=== PATIENT | female | born 1950 | race Caucasian/White ===

== ENCOUNTER 2019-10-16 10:28 | Outpatient (CLI) | payer MEDICARE ==
--- NOTE | 2019-10-16 11:30 | RAD ---
RIGHT KNEE 4 VIEWS: Date: 10/16/2019 PROVIDED CLINICAL HISTORY: Arthralgia. FINDINGS: Tricompartmental osteophyte formation is seen. There is no evidence for fracture or other acute osseo us abnormality. Alignment appears anatomic. Joint spaces appear preserved. IMPRESSION: Degenerative arthrosis of the right knee. POS: OFF
== END 2019-10-16 10:29 | disposition home or self-care (01) ==
LOC: RAD 10:28
PROVIDERS: ATTEND Family Medicine
DX: M25.561 Pain in right knee (principal); M17.11 Unilateral primary osteoarthritis, right knee

== ENCOUNTER 2019-11-21 08:01 | Day surgery (SDC) | payer MEDICARE ==
[2019-11-20 13:40] VITALS: BMI 25.2
[2019-11-21 09:10] LABS: #Basophils 0.1 thou/uL (0.0-0.2); #Eosinphils 0.1 thou/uL (0.0-0.7); #Lymphocytes 2.3 thou/uL (1.20-3.40); #Monocytes 0.7 thou/uL (0.11-0.59); #Neutrophils 7.6 thou/uL (1.40-6.50); %Basophils 0.6 % (0.0-1.0); %Eosinophils 0.9 % (0.0-10.0); %Monocytes 6.7 % (0.0-10.0); %Neutrophils 70.8 % (42.0-75.0); Mean Corpuscular HGB CONC 34.2 g/dL (32.0-36.0); Mean Corpuscular Hemoglobin 31.3 pg (27.0-31.0); Mean Corpuscular Volume 91.5 fL (78.0-98.0); Mean Platelet Volume 8.9 fL (7.4-10.4); Platelet Count 244 thou/uL (130-400); RBC Distribution Width 12.8 % (11.5-14.5); Red Blood Cell (RBC) Count 4.16 mill/uL (4.20-5.40); White Blood Cell (WBC) Count 10.8 thou/uL (4.8-10.8)
[2019-11-21 09:18] LABS: Prothrombin Time 12.7 SEC (12.0-14.7)
[2019-11-21 09:19] LABS: PTT 30.2 SEC (22.9-36.1)
[2019-11-21 09:34] LABS: Anion Gap 12 mmol/L (10-20); BUN (Urea Nitrogen) 24 mg/dL (9.8-20.1); Calc. Creatinine Clearance 65 mL/min (70-130); Calcium 9.6 mg/dL (7.8-10.44); Carbon Dioxide 34 mmol/L (23-31); Chloride 94 mmol/L (98-107); Estimated GFR-MDRD 64; Glucose 126 mg/dL (80-115); Potassium 3.1 mmol/L (3.5-5.1); Sodium 137 mmol/L (136-145)
[2019-11-21] MEDS ORDERED: Fentanyl 100 MCG/2 ML VIAL ONE ×5 (09:47→15:24)
[2019-11-21] MEDS ORDERED: Lidocaine 1% PF 5 ML VIAL ONE (09:52)
[2019-11-21] MEDS ORDERED: Dexamethasone 20 MG/5 ML VIAL ONE (09:52)
[2019-11-21] MEDS ORDERED: Glycopyrrolate 0.2 MG/ML 5 ML SYRINGE ONE (09:52)
[2019-11-21] MEDS ORDERED: PROPOFOL 200 MG/20 ML VIAL ONE (09:52)
[2019-11-21] MEDS ORDERED: PHENYLEPHRINE-NS 100 MCG/ML 10 ML SYRINGE ONE (09:52)
[2019-11-21] MEDS ORDERED: Rocuronium Bromide 10 MG/ML (10ML VIAL) ONE (09:52)
[2019-11-21] MEDS ORDERED: EPHEDRINE 25 MG/5 ML SYRINGE ONE (09:52)
[2019-11-21] MEDS ORDERED: Ondansetron PF 4 MG/2 ML Vial ONE (09:52)
[2019-11-21] MEDS ORDERED: Thrombin 5000 UNITS/5 ML VIAL ONE (10:01)
[2019-11-21] MEDS ORDERED: Levofloxacin 500 mg/D5W 100 ml Premix Bag ONE (10:09)
[2019-11-21] MEDS ORDERED: Clindamycin/D5W 900 mg/50 ml Premix Bag ONE (10:09)
[2019-11-21] MEDS ORDERED: HYDROmorphone 0.5 MG/0.5 ML SYRINGE ONE ×3 (10:47→14:17)
[2019-11-21] MEDS ORDERED: Bisacodyl 10 MG SUPP PR PRN (13:14)
[2019-11-21] MEDS ORDERED: tiZANidine HCl 4 MG TAB PO PRN (13:14)
[2019-11-21] MEDS ORDERED: Ondansetron PF 4 MG/2 ML Vial IVP PRN (13:14)
[2019-11-21] MEDS ORDERED: Milk Of Magnesia 30 ML UDCUP PO PRN (13:14)
[2019-11-21] MEDS ORDERED: traMADol HCl 50 MG TAB PO PRN (13:14)
[2019-11-21] MEDS ORDERED: Acetaminophen 325 MG TAB PO PRN (13:14)
[2019-11-21] MEDS ORDERED: Morphine 2 MG/ML SYRINGE SLOW IVP PRN (13:14)
[2019-11-21] MEDS ORDERED: Mag-Al 1200 mg/1200 mg/30 ML UDCUP PO PRN (13:14)
[2019-11-21] MEDS ORDERED: Fleet Enema 133 ML BOT PR PRN (13:14)
[2019-11-21] MEDS ORDERED: HYDROcodone/Acetaminophen 7.5/325 mg Tablet PO PRN (13:14)
[2019-11-21] MEDS ORDERED: Promethazine HCl 25 MG/ML VIAL IM PRN (13:27)
[2019-11-21] MEDS ORDERED: Promethazine HCl 25 MG/ML VIAL SLOW IVP PRN (13:27)
[2019-11-21] MEDS ORDERED: Ondansetron HCl/PF 4 MG/2 ML Vial IVP PRN (13:27)
[2019-11-21] MEDS ORDERED: HYDROmorphone 2 MG/ML VIAL SLOW IVP PRN (13:27)
[2019-11-21] MEDS ORDERED: Ketamine 50 MG/ML (10ML VIAL) ONE (14:49)
[2019-11-21] MEDS: Sodium Chloride 0.9% 1,000 ML IV SCH (16:35)
--- NOTE | 2019-11-21 17:04 | EKG ---
Test Reason : PREOP Blood Pressure : / mmHG Vent. Rate : 062 BPM Atrial Rate : 062 BPM P-R Int : 154 ms QRS Dur : 086 ms QT Int : 424 ms P-R-T Axes : 054 028 039 degrees QTc Int : 430 ms Normal sinus rhythm Nonspecific ST abnormality Abnormal ECG No previous ECGs available Confirmed by DR. Simon HAN ([id number]) on 11/21/2019 5:04:02 PM Referred By: ANTONI Confirmed By:DR. Simon HAN
[2019-11-21] MEDS: Acetaminophen/Codeine 30-300mg Tablet PO PRN (17:07)
[2019-11-21] MEDS: Clindamycin/D5W 900 MG in Premix Bag 1 BAG IVPB SCH (18:33)
[2019-11-22] MEDS: Clindamycin/D5W 900 MG in Premix Bag 1 BAG IVPB SCH (02:18)
[2019-11-22] MEDS: Sodium Chloride 0.9% 1,000 ML IV SCH ×2 (04:02→16:00)
[2019-11-22] MEDS ORDERED: Thyroid 60 MG TAB PO SCH (06:00)
[2019-11-22] MEDS: Acetaminophen/Codeine 30-300mg Tablet PO PRN ×2 (06:17→11:40)
[2019-11-22] MEDS ORDERED: Potassium Chloride 10 MEQ TAB PO SCH (08:00)
[2019-11-22] MEDS ORDERED: Furosemide 20 MG TAB PO SCH ×2 (08:45→09:00)
[2019-11-22] MEDS ORDERED: Chlorthalidone 25 MG TAB PO SCH (09:00)
[2019-11-22] MEDS ORDERED: Multivit, Therapeutic 1 TAB PO SCH (09:00)
[2019-11-22] MEDS ORDERED: Atenolol 50 MG TAB PO SCH (09:00)
--- NOTE | 2019-11-22 10:12 | PRG ---
DATE OF SERVICE: 11/22/2019 Ms. Santiago is postoperative day #1 for multilevel lumbar decompression. She is doing well with resolution in her leg pain. She is mobilizing. She had elevated postvoid residual at 900 and as such, required in and out catheterization x2. We will re-initiate her Lasix for some reason, she was told by preoperative nursing to stop her Lasix. Nevertheless, hopefully, this will help her void with more mobilization. We will watch her postvoid residual and give her at least 2 more chances of in and out catheterization. Hopefully, she will be dismissed today. Job ID: [id number]
--- NOTE | 2019-11-22 11:45 | OP ---
DATE OF PROCEDURE: 11/21/2019 AUTOMATION QA TESTER: Liza Crenshaw PA-C PREPROCEDURE DIAGNOSIS: Lumbar stenosis with low back and leg pain. POSTPROCEDURE DIAGNOSIS: Lumbar stenosis with low back and leg pain. PROCEDURE PERFORMED: L3-L4 and L4-L5 laminectomies, partial facetectomies, and foraminotomies. DESCRIPTION OF PROCEDURE: After informed consent was obtained from the patient, the patient was brought to the OR. Proper patient, pause, and identification were carried out. She was placed under excellent general endotracheal anesthesia and positioned prone on the OR table. All appropriate points were padded. We identified the L3-L4 and L4-L5 dorsal spines and lamina. A linear lul was made over this region. This area was sterilely cleansed, prepared, and draped. Proper patient, pause, and identification were carried out. The wound was then opened with a combination of sharp, monopolar, and blunt dissection. We exposed the L3, L4, and L5 dorsal spines and lamina. Localization confirmed our area of interest. We then performed L3-L4 and L4-L5 laminectomies, partial facetectomies, and foraminotomies. In particular, I felt out into the right L3 neuroforamen as I was questioning whether there may be some component of lateral far-lateral disk extrusion and none was found. This was not as easily observed on the axial cuts anyway, and so I suspect this was venous engorgement. Copious irrigation occurred throughout as did maximizing hemostasis. The wound was closed in anatomic layers. There was a small blood in the dura, perhaps arachnoid, but no CSF leak and I did place DuraSeal over this area to buttress it. Job ID: [id number]
[2019-11-22 15:34] VITALS: BP 113/72; TEMP 97.5
== END 2019-11-22 18:45 | disposition home or self-care (01) ==
LOC: SDC 08:01 → SURG A 13:18 → SDC 11-22 18:45
PROVIDERS: ATTEND Surgery
PROC: 01NB0ZZ Release Lumbar Nerve, Open Approach (ICD-10-PCS; principal; 2019-11-21)
DX: M48.061 Spinal stenosis, lumbar region without neurogenic claudication (principal); M54.16 Radiculopathy, lumbar region; E03.9 Hypothyroidism, unspecified; Z79.899 Other long term (current) drug therapy; Z88.0 Allergy status to penicillin; Z88.8 Allergy status to other drugs, medicaments and biological substances; Z91.018 Allergy to other foods
CPT/HCPCS: 36415; 76000; 80048; 85025; 85610; 85730; 93005; 93010; J1100; J1170; J1956; J2001; J2405; J2704; J3010; J3370; J3490

== ENCOUNTER 2022-08-14 10:26 | Observation (INO) | payer MEDICARE ==
[2022-08-14] MEDS ORDERED: Ondansetron PF 4 MG/2 ML Vial IVP PRN (10:31)
[2022-08-14] MEDS ORDERED: traMADol HCl 50 MG TAB PO PRN (10:31)
[2022-08-14] MEDS ORDERED: Acetaminophen 325 MG TAB PO PRN (10:31)
[2022-08-14] MEDS ORDERED: Acetaminophen/Codeine 30-300mg Tablet PO PRN (10:31)
[2022-08-14] MEDS ORDERED: tiZANidine HCl 4 MG TAB PO PRN (10:35)
[2022-08-14] MEDS ORDERED: hydrALAZINE 20 MG/ML VIAL SLOW IVP PRN (10:35)
[2022-08-14] MEDS ORDERED: Morphine 4 MG/ML VIAL SLOW IVP PRN (10:55)
[2022-08-14] MEDS ORDERED: Sodium Chloride 0.9% 100 ML ONE (11:09)
[2022-08-14] MEDS ORDERED: Lidocaine 1% MPF 2 ML VIAL ONE (11:09)
[2022-08-14] MEDS ORDERED: CEFAZOLIN 2 GM VIAL ONE (11:09)
[2022-08-14 11:41] LABS: #Basophils 0.1 thou/uL (0.0-0.2); #Eosinphils 0.2 thou/uL (0.0-0.7); #Lymphocytes 2.1 thou/uL (1.20-3.40); #Monocytes 0.6 thou/uL (0.11-0.59); #Neutrophils 7.9 thou/uL (1.40-6.50); %Basophils 0.5 % (0.0-1.0); %Eosinophils 1.7 % (0.0-10.0); %Lymphocytes 19.6 % (21.0-51.0); %Monocytes 5.3 % (0.0-10.0); Hemoglobin 11.5 g/dL (12.0-16.0); Mean Corpuscular HGB CONC 34.1 g/dL (32.0-36.0); Mean Corpuscular Volume 90.7 fl (78.0-98.0); Mean Platelet Volume 7.9 fL (7.4-10.4); Platelet Count 303 10x3/uL (130-400); RBC Distribution Width 12.4 % (11.5-14.5); Red Blood Cell (RBC) Count 3.71 mill/uL (4.20-5.40); White Blood Cell (WBC) Count 10.8 10x3/uL (4.8-10.8)
[2022-08-14 11:47] LABS: SARS-CoV-2 NAA Rapid Test Not Detected (NotDetected)
[2022-08-14 11:57] LABS: Anion Gap 15 mmol/L (10-20); BUN (Urea Nitrogen) 29 mg/dL (9.8-20.1); Calc. Creatinine Clearance 53 mL/min (70-130); Calcium 9.5 mg/dL (7.8-10.44); Carbon Dioxide 27 mmol/L (23-31); Chloride 99 mmol/L (98-107); Estimated GFR 52; Glucose 112 mg/dL (83-110); INR-International Normal Ratio 1.1; Potassium 3.7 mmol/L (3.5-5.1); Prothrombin Time 14.3 sec (12.0-14.7); Sodium 137 mmol/L (136-145)
[2022-08-14 11:58] LABS: PTT 33.6 sec (22.9-36.1)
[2022-08-14] MEDS ORDERED: Thrombin 5000 UNITS/5 ML VIAL ONE ×2 (12:44)
[2022-08-14] MEDS ORDERED: fentaNYL PF 100 MCG/2 ML SYRINGE ONE (12:58)
[2022-08-14] MEDS ORDERED: PROPOFOL 200 MG/20 ML VIAL ONE (13:04)
[2022-08-14] MEDS ORDERED: Ondansetron PF 4 MG/2 ML Vial ONE (13:04)
[2022-08-14] MEDS ORDERED: Glycopyrrolate 0.2 MG/ML 5 ML SYRINGE ONE (13:04)
[2022-08-14] MEDS ORDERED: Dexamethasone 20 MG/5 ML VIAL ONE (13:04)
[2022-08-14] MEDS ORDERED: ePHEDrine 50 MG/ML VIAL ONE (13:04)
[2022-08-14] MEDS ORDERED: NEOSTIGMINE 3 MG/3 ML SYR 3 MG/3 ML SYRINGE ONE (13:04)
[2022-08-14] MEDS ORDERED: Rocuronium Bromide 10 MG/ML (10ML VIAL) ONE (13:04)
[2022-08-14] MEDS ORDERED: Phenylephrine 10 MG/ML VIAL ONE (13:04)
[2022-08-14] MEDS ORDERED: HYDROmorphone 2 MG/ML VIAL ONE (14:33)
[2022-08-14] MEDS ORDERED: FENTANYL 50 MCG/ML 1 ML VIAL ONE ×4 (14:50→15:40)
[2022-08-14] MEDS ORDERED: Clindamycin/D5W 900 MG in Premix Bag 1 BAG IVPB SCH (16:00)
[2022-08-14] MEDS: Sodium Chloride 0.9% 1,000 ML IV SCH (16:26)
[2022-08-14 17:22] VITALS: BMI 28.1
[2022-08-14] MEDS: Gabapentin 300 MG CAP PO SCH ×2 (17:23→21:06)
[2022-08-14] MEDS: HYDROcodone/Acetaminophen 7.5/325 mg Tablet PO PRN (18:43)
[2022-08-14] MEDS: Clindamycin/D5W 900 MG in Premix Bag 1 BAG IVPB SCH (18:44)
[2022-08-15] MEDS: Sodium Chloride 0.9% 1,000 ML IV SCH (01:30)
[2022-08-15] MEDS: Clindamycin/D5W 900 MG in Premix Bag 1 BAG IVPB SCH (03:04)
[2022-08-15] MEDS ORDERED: Thyroid 60 MG TAB PO SCH (06:00)
[2022-08-15 08:34] VITALS: BP 121/72; TEMP 98.1
[2022-08-15] MEDS: Gabapentin 300 MG CAP PO SCH (08:54)
[2022-08-15] MEDS: HYDROcodone/Acetaminophen 7.5/325 mg Tablet PO PRN (08:58)
[2022-08-15] MEDS ORDERED: Multivit, Therapeutic 1 TAB PO SCH (09:00)
[2022-08-15] MEDS ORDERED: Furosemide 20 MG TAB PO SCH (09:00)
[2022-08-15] MEDS ORDERED: Potassium Chloride 10 MEQ TAB PO SCH (09:00)
[2022-08-15] MEDS ORDERED: Chlorthalidone 25 MG TAB PO SCH (09:00)
[2022-08-15] MEDS ORDERED: Atenolol 50 MG TAB PO SCH (09:00)
== END 2022-08-15 10:28 | disposition home or self-care (01) ==
LOC: SDC 10:26 → MSONC 10:37
PROVIDERS: ADMIT Surgery; ATTEND Surgery
PROC: 0SB20ZZ Excision of Lumbar Vertebral Disc, Open Approach (ICD-10-PCS; principal; 2022-08-14)
DX: M51.16 Intervertebral disc disorders with radiculopathy, lumbar region (principal); M79.7 Fibromyalgia; E03.9 Hypothyroidism, unspecified; Z79.890 Hormone replacement therapy; Z79.899 Other long term (current) drug therapy; Z88.0 Allergy status to penicillin; Z91.018 Allergy to other foods; Z20.822 Contact with and (suspected) exposure to COVID-19
CPT/HCPCS: 63042; 80048; 85025; 85610; 85730; J3010; U0002; 36415; J1100; J1170; J2370; J2405; J2704; J3370; J3490